=== PATIENT | male | born 1970 | race African-American/Black ===

== ENCOUNTER 2024-05-16 16:14 | Observation (INO) | payer OTHER, SELFPAY ==
[2024-05-16 16:26] VITALS: BMI 23.6
[2024-05-16] MEDS ORDERED: Nitroglycerin 0.4 MG TAB (25 Tab Bottle) SL PRN (19:10)
[2024-05-16] MEDS ORDERED: Calcium Carbonate 500 MG ChewTAB PO PRN (19:12)
[2024-05-16] MEDS ORDERED: Senokot S 8.6-50 MG TAB PO PRN (19:12)
[2024-05-16] MEDS ORDERED: Nitroglycerin 2% Ointment 1 INCH/1 GM Packet TOP PRN (19:14)
[2024-05-16] MEDS: cefTRIAXone\\ROCEPHIN 1 GM in Sodium Chloride 0.9% 100 ML IVPB SCH (20:52)
[2024-05-16] MEDS: Famotidine 20 MG TAB PO SCH (20:53)
[2024-05-16] MEDS: Heparin 5,000 UNITS/ML VIAL SC SCH (20:53)
[2024-05-17 04:51] LABS: Anion Gap 11 mmol/L (10-20); BUN (Urea Nitrogen) 10 mg/dL (8.4-25.7); Calc. Creatinine Clearance 89 mL/min (70-130); Carbon Dioxide 22 mmol/L (22-29); Chloride 107 mmol/L (98-107); Estimated GFR 90; Glucose 100 mg/dL (70-105); Sodium 136 mmol/L (136-145)
[2024-05-17] MEDS: Aspirin 81 mg Enteric Coated Tablet PO SCH (08:24)
[2024-05-17] MEDS: Lisinopril 20 MG TAB PO SCH (08:24)
[2024-05-17] MEDS: NIFEdipine XL 60 MG ER.TAB PO SCH (08:24)
[2024-05-17] MEDS ORDERED: Aspirin Chewable 81 MG TAB PO SCH (09:00)
[2024-05-17] MEDS ORDERED: hydrALAZINE 25 MG TAB PO PRN (13:49)
[2024-05-17] MEDS: Isosorbide Mononitrate 20 MG TAB PO SCH (20:56)
[2024-05-17] MEDS: Metoprolol Tartrate 25 MG TAB PO SCH (20:56)
[2024-05-18] MEDS: NIFEdipine XL 30 MG ER.TAB PO SCH (08:55)
[2024-05-18] MEDS: Cefdinir 300 MG CAP PO SCH (08:55)
[2024-05-18 11:34] LABS: ALT (SGPT) 16 U/L (8-55); AST (SGOT) 14 U/L (5-34); Albumin 3.3 g/dL (3.5-5.0); Alkaline Phosphatase 63 U/L (40-110); Anion Gap 9 mmol/L (10-20); BUN (Urea Nitrogen) 13 mg/dL (8.4-25.7); Bilirubin, Total 0.2 mg/dL (0.2-1.2); Calc. Creatinine Clearance 90 mL/min (70-130); Calcium 9.4 mg/dL (7.8-10.44); Carbon Dioxide 27 mmol/L (22-29); Chloride 104 mmol/L (98-107); Estimated GFR 91; Globulin 3.7 g/dL (2.4-3.5); Glucose 96 mg/dL (70-105); Magnesium 2.1 mg/dL (1.6-2.6); Potassium 4.2 mmol/L (3.5-5.1); Sodium 136 mmol/L (136-145)
[2024-05-18] MEDS: Acetaminophen 325 MG TAB PO PRN (17:00)
[2024-05-18 18:04] VITALS: BP 136/83; TEMP 98.2
[2024-05-18] MEDS: Isosorbide Mononitrate 20 MG TAB PO SCH (20:09)
== END 2024-05-18 20:10 | disposition home or self-care (01) ==
LOC: INTOOBSV 16:14 → CSHTELE 16:14
PROVIDERS: ADMIT Internal Medicine; ATTEND Hospitalist
PROC: B24BZZZ Ultrasonography of Heart with Aorta (ICD-10-PCS; principal; 2024-05-18)
DX: R07.9 Chest pain, unspecified (principal); E87.6 Hypokalemia; I16.9 Hypertensive crisis, unspecified; N39.0 Urinary tract infection, site not specified; I13.0 Hypertensive heart and chronic kidney disease with heart failure and stage 1 through stage 4 chronic kidney disease, or unspecified chronic kidney disease; I50.20 Unspecified systolic (congestive) heart failure; N18.2 Chronic kidney disease, stage 2 (mild); D63.1 Anemia in chronic kidney disease; I42.2 Other hypertrophic cardiomyopathy; I25.10 Atherosclerotic heart disease of native coronary artery without angina pectoris; F17.210 Nicotine dependence, cigarettes, uncomplicated; Z79.899 Other long term (current) drug therapy; Z79.82 Long term (current) use of aspirin
CPT/HCPCS: 36415; 80048; 80053; 83735; 93005; 93010; 93306; 94760; 96372; 96374; 96376; G0378; J0696; J1644; J3490